=== PATIENT | male | born 1975 ===

== ENCOUNTER → 2018-06-26 14:03 | Outpatient (REF) | payer OTHER, SELFPAY ==
[2018-06-26 14:22] LABS: Add Manual Diff / Slide Review NO; Basophils Absolute Auto 0 /uL (0-100); Basophils Percent Auto 1.3 % (0-2); Eosinophils Absolute Auto 0 /uL (0-450); Hematocrit 46.6 % (41-53); Hemoglobin 15.2 g/dL (13.5-17.5); Lymphocytes Absolute Auto 800 /uL (1100-4500); Lymphocytes Percent Auto 20.9 % (25-40); Mean Corpuscular HGB Conc 32.7 % (30-36); Mean Corpuscular Hemoglobin 28.3 PG (26-34); Mean Corpuscular Volume 86.5 fL (80-100); Monocytes Absolute Auto 700 /uL (0-900); Monocytes Percent Auto 20.1 % (3-14); Neutrophils Absolute Auto 2100 /uL (1500-7000); Neutrophils Percent Auto 56.7 % (50-75); Platelet Count 250 X10^3/uL (150-400); Red Blood Cell Count 5.39 X10^6/uL (4.5-5.9); Red Cell Distribution Width 12.4 % (11.6-14.8); White Blood Cell Count 3.7 X10^3/uL (4.5-11.0)
[2018-06-26 14:53] LABS: Thyroid Stimulating Hormone 1.35 uIU/mL (0.47-4.68)
[2018-06-26 16:32] LABS: Ferritin 68.3 ng/mL (17.9-464)
[2018-06-26 17:03] LABS: Folate > 20.0 ng/mL (2.76-20.0); Vitamin B12 536 pg/mL (239-931)
== END ==
LOC: LAB 14:03
PROVIDERS: Visit Provider Family Medicine
DX: E03.9 Hypothyroidism, unspecified (principal); R53.83 Other fatigue; R53.1 Weakness
CPT/HCPCS: 36415; 82607; 82728; 82746; 84443; 85025